=== PATIENT | female | born 1955 ===

== ENCOUNTER 2018-06-19 10:15 | Outpatient (CLI) | payer OTHER ==
[~2018-06-19] VITALS: Ht 160 cm; Wt 90.7 kg
[2018-06-19] MEDS ORDERED: CEFUROXIME500 MG PO (13:08)
== END 2018-06-19 10:30 | disposition home or self-care (01) ==
LOC: OFIC 805 10:15
DX: R05 Cough (principal); J32.4 Chronic pansinusitis; J31.0 Chronic rhinitis

== ENCOUNTER 2022-08-17 10:27 | Outpatient (CLI) | payer OTHER ==
[~2022-08-17 10:27] MED LIST: CEFUROXIME500 MG PO
== END 2022-08-17 10:31 | disposition home or self-care (01) ==
LOC: SONOGRAMA 10:27
PROVIDERS: ATTEND Pathology Anatomic Pathology & Clinical Pathology
DX: D34 Benign neoplasm of thyroid gland (principal); E04.9 Nontoxic goiter, unspecified